=== PATIENT | male | born 1970 | race Two or more races ===

== ENCOUNTER 2018-01-21 10:26 | Inpatient (IN) | payer MEDICAID ==
[~2018-01-21] VITALS: Ht 162.6 cm; Wt 64.6 kg
[2018-01-21 11:07] LABS: PLATELET COUNT 190 x10^3mcL (130-400)
[2018-01-21 11:17] LABS: CALCIUM 8.8 mg/dL (8.5-10.1); CARBON DIOXIDE 28.5 mmol/L (21-32); CHLORIDE SERUM 96 mmol/L (98-107); CREATININE SERUM 0.8 mg/dL (0.7-1.3); GFR1 > 60 mL/min; GLUCOSE SERUM 400 mg/dL (74-106); POTASSIUM SERUM 4.4 mmol/L (3.5-5.1); SODIUM SERUM 132 mmol/L (136-145)
[2018-01-21 11:30] LABS: BAND NEUTROPHIL 2 % (0-10); MONOCYTE 8 % (0-7); SEGMENTED NEUTROPHILS 83 % (37-75)
[2018-01-21 11:31] LABS: ALKALINE PHOSPHATASE 191 U/L (46-116); ALT/SGPT 44 U/L (16-63); AST/SGOT 28 U/L (15-37); BILIRUBIN TOTAL 0.94 mg/dL (0.20-1.00); PLATELET MORPHOLOGY PLATELETS NORMAL; TOTAL PROTEIN, SERUM 7.3 g/dL (6.4-8.2); rbc morphology (normal/abnorm) NORMAL (NORMAL)
[2018-01-21 11:36] LABS: ALBUMIN 2.3 g/dL (3.4-5.0)
[2018-01-21 13:11] LABS: UA SPECIFIC GRAVITY <=1.005 (1.005-1.035); microscopic required? YES; urine erythrocyte 1+ (NEGATIVE)
[2018-01-21 13:14] LABS: MAGNESIUM 2.1 mg/dL (1.8-2.4); PHOSPHOROUS 2.4 mg/dL (2.5-4.9)
[2018-01-21 13:16] LABS: CHOLESTEROL/HDL RATIO 4.9
[2018-01-21 13:21] LABS: AMPHETAMINE QUAL UR NONE DETECTED (See below)
[2018-01-21 13:23] LABS: T3 TOTAL 0.7 ng/mL
[2018-01-21 13:27] LABS: FREE T4 1.69 ng/dL (0.76-1.46); FREE THYROXINE INDEX 3.2 ug/dL (1.4-4.5); T4(THYROXINE) 8.9 ug/dL (4.7-13.3)
[2018-01-21 14:03] VITALS: BP 127/76
[2018-01-21 14:08] VITALS: Ht 162.6 cm; Wt 64.6 kg
[2018-01-21 17:58] VITALS: BP 128/71
[2018-01-21 21:11] VITALS: BP 125/77
[2018-01-22 05:13] VITALS: BP 103/62
[2018-01-22 06:47] LABS: BASOPHIL % 0.3 % (0-2); PLATELET COUNT 160 x10^3mcL (130-400); RED CELL DISTRIBUTION WIDTH 12.3 % (11.5-14.5)
[2018-01-22 06:50] LABS: CALCIUM 7.9 mg/dL (8.5-10.1); CARBON DIOXIDE 25.6 mmol/L (21-32); CHLORIDE SERUM 103 mmol/L (98-107); CREATININE SERUM 0.8 mg/dL (0.7-1.3); GFR1 > 60 mL/min; GLUCOSE SERUM 251 mg/dL (74-106); POTASSIUM SERUM 3.8 mmol/L (3.5-5.1); SODIUM SERUM 137 mmol/L (136-145)
[2018-01-22 07:58] VITALS: BP 109/64
[2018-01-22 12:39] VITALS: BP 126/64
[2018-01-22 17:35] VITALS: BP 132/81
[2018-01-22 20:36] VITALS: BP 97/62
[2018-01-23 05:31] VITALS: BP 119/73
[2018-01-23 05:52] LABS: BASOPHIL % 0.1 % (0-2); PLATELET COUNT 190 x10^3mcL (130-400); RED CELL DISTRIBUTION WIDTH 12.3 % (11.5-14.5)
[2018-01-23 06:04] LABS: CALCIUM 8.1 mg/dL (8.5-10.1); CARBON DIOXIDE 23.7 mmol/L (21-32); CHLORIDE SERUM 102 mmol/L (98-107); CREATININE SERUM 0.7 mg/dL (0.7-1.3); GFR1 > 60 mL/min; GLUCOSE SERUM 212 mg/dL (74-106); MAGNESIUM 1.6 mg/dL (1.8-2.4); PHOSPHOROUS 2.7 mg/dL (2.5-4.9); POTASSIUM SERUM 3.4 mmol/L (3.5-5.1); SODIUM SERUM 137 mmol/L (136-145)
[2018-01-23 06:05] LABS: AMYLASE 18 U/L (25-115)
[2018-01-23 12:38] VITALS: BP 100/64
[2018-01-23 17:12] VITALS: BP 123/74
[2018-01-23 20:52] VITALS: BP 119/73
[2018-01-24] VITALS (8 sets, daily range): BP systolic 100–148; BP diastolic 63–107
[2018-01-24 06:09] LABS: CARBON DIOXIDE 20.8 mmol/L (21-32); CHLORIDE SERUM 104 mmol/L (98-107); CREATININE SERUM 0.6 mg/dL (0.7-1.3); GFR1 > 60 mL/min; GLUCOSE SERUM 225 mg/dL (74-106); POTASSIUM SERUM 3.4 mmol/L (3.5-5.1); SODIUM SERUM 138 mmol/L (136-145)
[2018-01-24 06:19] LABS: BASOPHIL % 0.1 % (0-2); PLATELET COUNT 173 x10^3mcL (130-400); RED CELL DISTRIBUTION WIDTH 12.3 % (11.5-14.5)
[2018-01-25 06:01] VITALS: BP 128/74
[2018-01-25 07:24] LABS: BASOPHIL % 0.1 % (0-2); PLATELET COUNT 200 x10^3mcL (130-400); RED CELL DISTRIBUTION WIDTH 12.5 % (11.5-14.5)
[2018-01-25 07:25] LABS: ALKALINE PHOSPHATASE 147 U/L (46-116); ALT/SGPT 46 U/L (16-63); AST/SGOT 59 U/L (15-37); BILIRUBIN TOTAL 0.5 mg/dL (0.20-1.00); CALCIUM 7.6 mg/dL (8.5-10.1); CARBON DIOXIDE 24.3 mmol/L (21-32); CHLORIDE SERUM 109 mmol/L (98-107); CREATININE SERUM 0.7 mg/dL (0.7-1.3); GFR1 > 60 mL/min; GLUCOSE SERUM 205 mg/dL (74-106); POTASSIUM SERUM 3.4 mmol/L (3.5-5.1); SODIUM SERUM 139 mmol/L (136-145)
[2018-01-25 07:42] LABS: ALBUMIN 1.7 g/dL (3.4-5.0); TOTAL PROTEIN, SERUM 6.4 g/dL (6.4-8.2)
[2018-01-25 09:17] VITALS: BP 108/67
[2018-01-25 12:54] VITALS: BP 126/81
[2018-01-25 16:24] VITALS: BP 121/75
[2018-01-25 21:05] VITALS: BP 116/73
[2018-01-26 05:59] VITALS: BP 120/76
[2018-01-26 06:34] LABS: BASOPHIL % 0.3 % (0-2); PLATELET COUNT 180 x10^3mcL (130-400); RED CELL DISTRIBUTION WIDTH 12.4 % (11.5-14.5)
[2018-01-26 06:56] LABS: ALKALINE PHOSPHATASE 124 U/L (46-116); ALT/SGPT 37 U/L (16-63); AST/SGOT 25 U/L (15-37); BILIRUBIN TOTAL 0.33 mg/dL (0.20-1.00); CALCIUM 7.6 mg/dL (8.5-10.1); CARBON DIOXIDE 26.9 mmol/L (21-32); CHLORIDE SERUM 108 mmol/L (98-107); CREATININE SERUM 0.6 mg/dL (0.7-1.3); GFR1 > 60 mL/min; GLUCOSE SERUM 100 mg/dL (74-106); MAGNESIUM 1.6 mg/dL (1.8-2.4); SODIUM SERUM 142 mmol/L (136-145)
[2018-01-26 07:16] LABS: ALBUMIN 1.4 g/dL (3.4-5.0); POTASSIUM SERUM 2.9 mmol/L (3.5-5.1); TOTAL PROTEIN, SERUM 5.4 g/dL (6.4-8.2)
[2018-01-26 09:29] VITALS: BP 106/69
[2018-01-26 13:14] VITALS: BP 129/80
[2018-01-26] MEDS ORDERED: LEVAQUIN750 MG PO (13:42)
== END 2018-01-26 15:32 | disposition home or self-care (01) | DRG 720 ==
LOC: ED 10:26 → DU 11:47
PROVIDERS: Emergency Medicine; Family Medicine; Internal Medicine
PROC: 0FB13ZX Excision of Right Lobe Liver, Percutaneous Approach, Diagnostic (ICD-10-PCS; principal; 2018-01-23)
DX: A41.9 Sepsis, unspecified organism (principal); K75.0 Abscess of liver; E43 Unspecified severe protein-calorie malnutrition; E11.65 Type 2 diabetes mellitus with hyperglycemia; K52.89 Other specified noninfective gastroenteritis and colitis; E83.42 Hypomagnesemia; E87.1 Hypo-osmolality and hyponatremia; E86.0 Dehydration; Z68.25 Body mass index [BMI] 25.0-25.9, adult; Z87.891 Personal history of nicotine dependence; Z91.14 Patient's other noncompliance with medication regimen
CPT/HCPCS: 82962; 83880; 84439; 87046; 87046-59; C1894; J0696; J1815; J2001; J2405; J2543; J3475; J3480; J3490; J7030; Q0092; Q9967

== ENCOUNTER 2019-11-15 10:51 | Inpatient (IN) | payer MEDICAID ==
[~2019-11-15] VITALS: Ht 165.1 cm; Wt 77.0 kg
[2019-11-15] VITALS (8 sets, daily range): BP systolic 95–118; BP diastolic 50–76; Ht 165.1 cm; Wt 77.0 kg
[~2019-11-15 10:51] MED LIST: LEVAQUIN750 MG PO
[2019-11-15 12:14] LABS: PLATELET COUNT 162 x10^3mcL (130-400); RED CELL DISTRIBUTION WIDTH 12.6 % (11.5-14.5)
[2019-11-15 12:31] LABS: ALKALINE PHOSPHATASE 71 U/L (46-116); ALT/SGPT 28 U/L (16-63); AST/SGOT 9 U/L (15-37); BILIRUBIN TOTAL 0.5 mg/dL (0.20-1.00); CALCIUM 8.8 mg/dL (8.5-10.1); CARBON DIOXIDE 17.7 mmol/L (21-32); CHLORIDE SERUM 97 mmol/L (98-107); GLUCOSE SERUM 352 mg/dL (74-106); LIPASE 149 IU/L (73-393); POTASSIUM SERUM 4.4 mmol/L (3.5-5.1); SODIUM SERUM 132 mmol/L (136-145); TOTAL PROTEIN, SERUM 7.4 g/dL (6.4-8.2)
[2019-11-15 12:32] LABS: ALBUMIN 3.3 g/dL (3.4-5.0); GFR1 7 mL/min
[2019-11-15 12:35] LABS: CREATININE SERUM 8.4 mg/dL (0.7-1.3)
[2019-11-15] MEDS ORDERED: HORIZANT300 MG (15:09)
[2019-11-15] MEDS ORDERED: GLIPIZIDE XL10 M1 (15:09)
[2019-11-15] MEDS ORDERED: ZES10 (15:09)
[2019-11-15] MEDS ORDERED: FORTAMET1000 MG (15:10)
[2019-11-15] MEDS ORDERED: JANUVIA25 M1 (15:10)
[2019-11-15] MEDS ORDERED: FENOFIBRATE MIC43 MG (15:10)
[2019-11-15 23:37] LABS: UA SPECIFIC GRAVITY >=1.030 (1.005-1.035); microscopic required? YES; urine erythrocyte TRACE (NEGATIVE)
[2019-11-15 23:42] LABS: CREATININE UR 289.8 mg/dL
[2019-11-16 04:11] VITALS: BP 92/58
[2019-11-16 05:30] VITALS: BP 93/55
[2019-11-16 06:09] LABS: BASOPHIL % 1.1 % (0-2); PLATELET COUNT 138 x10^3mcL (130-400); RED CELL DISTRIBUTION WIDTH 12.6 % (11.5-14.5)
[2019-11-16 06:24] LABS: BILIRUBIN TOTAL 0.4 mg/dL (0.20-1.00); CALCIUM 7.4 mg/dL (8.5-10.1); CARBON DIOXIDE 18.8 mmol/L (21-32); MAGNESIUM 1.6 mg/dL (1.8-2.4); PHOSPHOROUS 2.9 mg/dL (2.5-4.9); POTASSIUM SERUM 4.7 mmol/L (3.5-5.1)
[2019-11-16 06:31] LABS: ALBUMIN 2.6 g/dL (3.4-5.0); TOTAL PROTEIN, SERUM 5.7 g/dL (6.4-8.2)
[2019-11-16 06:32] LABS: CREATININE SERUM 8.1 mg/dL (0.7-1.3)
[2019-11-16 08:45] VITALS: BP 92/61
[2019-11-16 12:58] LABS: PATH REVIEW for HEMA NO
[2019-11-16 14:57] VITALS: BP 88/60
[2019-11-16 15:18] LABS: BAND NEUTROPHIL 0 % (0-10); MONOCYTE 12 % (0-7); SEGMENTED NEUTROPHILS 81 % (37-75)
[2019-11-16 15:19] LABS: rbc morphology (normal/abnorm) NORMAL (NORMAL)
[2019-11-16 18:20] VITALS: BP 109/73
[2019-11-17 07:30] VITALS: BP 130/76
[2019-11-17 07:36] LABS: CALCIUM 8.5 mg/dL (8.5-10.1)
[2019-11-17 07:40] LABS: MAGNESIUM 1.7 mg/dL (1.8-2.4); PHOSPHOROUS 3.1 mg/dL (2.5-4.9)
[2019-11-17 07:42] LABS: BASOPHIL % 0.4 % (0-2); PLATELET COUNT 190 x10^3mcL (130-400); RED CELL DISTRIBUTION WIDTH 12.5 % (11.5-14.5)
[2019-11-17 07:46] LABS: CREATININE SERUM 4.3 mg/dL (0.7-1.3)
[2019-11-17 12:28] VITALS: BP 134/78
[2019-11-17 16:36] VITALS: BP 138/66
[2019-11-17 20:31] VITALS: BP 150/83
[2019-11-18 05:14] VITALS: BP 145/83
[2019-11-18 07:44] VITALS: BP 144/84
[2019-11-18 09:35] LABS: BASOPHIL % 0.3 % (0-2); PLATELET COUNT 205 x10^3mcL (130-400); RED CELL DISTRIBUTION WIDTH 11.9 % (11.5-14.5)
[2019-11-18 09:59] LABS: CALCIUM 8.5 mg/dL (8.5-10.1); CARBON DIOXIDE 23.8 mmol/L (21-32); CREATININE SERUM 1.9 mg/dL (0.7-1.3); POTASSIUM SERUM 3.9 mmol/L (3.5-5.1)
[2019-11-18 12:10] VITALS: BP 146/86
[2019-11-18 16:38] VITALS: BP 156/92
[2019-11-18 20:41] VITALS: BP 168/84
[2019-11-18 22:41] VITALS: BP 148/74
[2019-11-19 05:51] VITALS: BP 165/96
[2019-11-19 07:14] LABS: BASOPHIL % 0.1 % (0-2); PLATELET COUNT 251 x10^3mcL (130-400); RED CELL DISTRIBUTION WIDTH 11.6 % (11.5-14.5)
[2019-11-19 07:54] VITALS: BP 157/78
[2019-11-19 08:56] LABS: CALCIUM 8.9 mg/dL (8.5-10.1); CARBON DIOXIDE 22.4 mmol/L (21-32); CREATININE SERUM 1.4 mg/dL (0.7-1.3); POTASSIUM SERUM 3.6 mmol/L (3.5-5.1)
[2019-11-19 11:51] VITALS: BP 137/72
[2019-11-19 16:38] VITALS: BP 155/84
[2019-11-19 21:24] VITALS: BP 144/84
[2019-11-20 01:39] LABS: PLATELET COUNT 245 x10^3mcL (130-400); RED CELL DISTRIBUTION WIDTH 12.4 % (11.5-14.5)
[2019-11-20 01:51] LABS: BASOPHIL % 0 % (0-2)
[2019-11-20 01:53] LABS: ALKALINE PHOSPHATASE 52 U/L (46-116); ALT/SGPT 24 U/L (16-63); AST/SGOT 31 U/L (15-37); CALCIUM 8.4 mg/dL (8.5-10.1); CARBON DIOXIDE 18.3 mmol/L (21-32); CHLORIDE SERUM 107 mmol/L (98-107); CREATININE SERUM 1.3 mg/dL (0.7-1.3); GFR1 > 60 mL/min; POTASSIUM SERUM 4.5 mmol/L (3.5-5.1); SODIUM SERUM 144 mmol/L (136-145); TOTAL PROTEIN, SERUM 6.6 g/dL (6.4-8.2)
[2019-11-20 01:59] LABS: ALBUMIN 2.5 g/dL (3.4-5.0); GLUCOSE SERUM 197 mg/dL (74-106)
[2019-11-20 05:52] VITALS: BP 161/86
[2019-11-20 08:34] VITALS: BP 133/75
[2019-11-20 11:57] VITALS: BP 138/80
[2019-11-20 13:37] VITALS: BP 138/80
== END 2019-11-20 15:23 | disposition home or self-care (01) | DRG 710 ==
LOC: ED 10:51 → DU 14:50 → MU 11-19 20:16
PROVIDERS: Emergency Medicine; Internal Medicine; Surgery; ADMIT Student in an Organized Health Care Education/Training Program
PROC: 0F9430Z Drainage of Gallbladder with Drainage Device, Percutaneous Approach (ICD-10-PCS; principal; 2019-11-16)
PROC: 0FT44ZZ Resection of Gallbladder, Percutaneous Endoscopic Approach (ICD-10-PCS; 2019-11-19)
DX: A41.9 Sepsis, unspecified organism (principal); N17.0 Acute kidney failure with tubular necrosis; E44.0 Moderate protein-calorie malnutrition; K81.0 Acute cholecystitis; J18.9 Pneumonia, unspecified organism; R65.20 Severe sepsis without septic shock; I10 Essential (primary) hypertension; E11.65 Type 2 diabetes mellitus with hyperglycemia; Z68.30 Body mass index [BMI] 30.0-30.9, adult; Z20.828 Contact with and (suspected) exposure to other viral communicable diseases
CPT/HCPCS: 49021; 82962; C9113; G0378; J1170; J1815; J1885; J2001; J2250; J2270; J2405; J2543; J2704; J2710; J3010; J3490; J7030; J7040; J7042; J7060; J7120; Q0092